=== PATIENT | female | born 1940 | race Hispanic/Latino ===

== ENCOUNTER 2017-03-02 19:08 | Emergency (ER) | payer MEDICARE ==
[~2017-03-02 19:08] MED LIST: AMLO10TA2 PO; LISI-613 PO; METO-391 PO; SIMV40TA59 PO; insu
[2017-03-02] MEDS ORDERED: ACETAMINOPHEN EXTRA STRENGTH 500 MG TABLET ONE (19:49)
[2017-03-02 20:36] LABS: CREATININE 1.9 mg/dL (0.5-1.5); POTASSIUM 4.9 mmol/L (3.5-5.1)
[2017-03-02 20:39] LABS: BASOPHILS % (AUTO) 0.3 % (0.0-5.0); EOSINOPHILS % (AUTO) 2.1 % (0.0-8.0); HEMATOCRIT 30.2 % (36-48); LYMPHOCYTES % (AUTO) 22.3 % (21.0-51.0); MEAN CORPUSCULAR HEMOGLOBIN 27.5 pg (27.0-33.0); MEAN CORPUSCULAR HGB CONC 33.7 g/dL (32.0-36.0); MEAN CORPUSCULAR VOLUME 81.6 fL (79-99); MONOCYTES % (AUTO) 6.1 % (3.0-13.0); NEUTROPHILS % (AUTO) 69.2 % (40.0-77.0); PLATELET COUNT (AUTO) 327 K/uL (130-400); RED CELL DISTRIBUTION WIDTH 16.2 % (11.0-15.5); WHITE BLOOD COUNT (AUTO) 9.1 K/uL (4.8-10.8)
[2017-03-02 20:50] LABS: ALBUMIN 2.3 g/dL (3.5-5.0); BILIRUBIN,TOTAL 0.1 mg/dL (0.2-1.0); CREATINE KINASE MB 1.7 ng/mL (0.5-3.6); TOTAL PROTEIN, SERUM 6.2 g/dL (6.0-8.3)
== END 2017-03-02 22:41 | disposition home or self-care (01) ==
LOC: EDH 19:08
DX: S20.212A Contusion of left front wall of thorax, initial encounter (principal); I10 Essential (primary) hypertension; E11.9 Type 2 diabetes mellitus without complications; Z79.4 Long term (current) use of insulin; W18.39XA Other fall on same level, initial encounter; Y93.89 Activity, other specified; Y92.89 Other specified places as the place of occurrence of the external cause; Y99.8 Other external cause status
CPT/HCPCS: 36415; 71046; 71100; 80053; 82550; 82553; 82948; 83690; 84484; 85025; 93005

== ENCOUNTER 2017-05-18 14:15 | Emergency (ER) | payer MEDICARE ==
[2017-05-18] MEDS ORDERED: ONDANSETRON HCL MDV 20ML 2 MG/ML VIAL ONE (14:52)
[2017-05-18] MEDS ORDERED: SODIUM CHLORIDE 0.9% 500ML 500 ML IV ONE (14:53)
[2017-05-18 14:56] LABS: BASOPHILS % (AUTO) 0.1 % (0.0-5.0); EOSINOPHILS % (AUTO) 0.3 % (0.0-8.0); HEMATOCRIT 28.2 % (36-48); MEAN CORPUSCULAR HEMOGLOBIN 28.4 pg (27.0-33.0); MEAN CORPUSCULAR HGB CONC 34.4 g/dL (32.0-36.0); MEAN CORPUSCULAR VOLUME 82.6 fL (79-99); MONOCYTES % (AUTO) 2.7 % (3.0-13.0); NEUTROPHILS % (AUTO) 90.9 % (40.0-77.0); PLATELET COUNT (AUTO) 272 K/uL (130-400); RED BLOOD CELL COUNT(AUTO) 3.42 MIL/uL (4.00-5.50); RED CELL DISTRIBUTION WIDTH 15.4 % (11.0-15.5); WHITE BLOOD COUNT (AUTO) 8.4 K/uL (4.8-10.8)
[2017-05-18 14:58] LABS: APPEARANCE,URINE Cloudy (CLEAR); BILIRUBIN,URINE Negative (NEGATIVE); COLOR,URINE Yellow (YELLOW); GLUCOSE, URINE (UA) 500 mg/dL (NEGATIVE); KETONES,URINE Negative (NEGATIVE); LEUKOCYTE ESTERASE ,URINE Trace (NEGATIVE); NITRATE,URINE Negative (NEGATIVE); OCCULT BLOOD,URINE Small (NEGATIVE); PH,URINE 5.5 (5.0-8.0); PROTEIN,URINE >=1000 (NEGATIVE); UROBILINOGEN,URINE 0.2 mg/dL (0.2-1.0)
[2017-05-18 15:05] LABS: CREATININE 2.1 mg/dL (0.5-1.5)
[2017-05-18 15:06] LABS: BACTERIA,URINE Many /HPF (None Seen)
[2017-05-18 15:07] LABS: RBC,URINE 0-1 /HPF (0-1)
[2017-05-18] MEDS ORDERED: MAG HYDROX/AL HYDROX/SIMETH ES 30 ML SUSP UDCUP ONE (15:08)
[2017-05-18] MEDS ORDERED: LIDOCAINE HCL 2% VISCOUS 15 ML UDCUP ONE (15:08)
[2017-05-18 15:18] LABS: BILIRUBIN,TOTAL 0.1 mg/dL (0.2-1.0); CREATINE KINASE MB 1.3 ng/mL (0.5-3.6); TOTAL PROTEIN, SERUM 6.1 g/dL (6.0-8.3)
== END 2017-05-18 16:47 | disposition home or self-care (01) ==
LOC: EDH 14:15
DX: K52.9 Noninfective gastroenteritis and colitis, unspecified (principal); E86.0 Dehydration; N39.0 Urinary tract infection, site not specified; N28.9 Disorder of kidney and ureter, unspecified; D64.9 Anemia, unspecified; E11.9 Type 2 diabetes mellitus without complications; I10 Essential (primary) hypertension; Z79.4 Long term (current) use of insulin
CPT/HCPCS: 36415; 71045; 80053; 81001; 82550; 82553; 83690; 84484; 85025; 93005; 96361; 96374; 99285; J7040

== ENCOUNTER → 2018-01-03 | Outpatient (CLI) | payer MEDICARE ==
[~2018-01-03] MED LIST changes: -AMLO10TA2 PO; +AMLO10TA6 PO; +ASPI-1181 PO; +CHLO25TA3 PO; +CLON0.1T PO; +DOCU-282 PO; +FERR325T22 PO; +HUM10VIA6 SQ; +HYDR100T27 PO; -LISI-613 PO; +LORA0.5T2 PO; +ONDA4TAB10 PO; +PANT40TA25 PO; +SERT25TA5 PO; +TRAM50TA4 PO; -insu
== END | disposition home or self-care (01) ==
LOC: SHCH 13:46
PROVIDERS: ATTEND Internal Medicine Cardiovascular Disease
DX: I87.2 Venous insufficiency (chronic) (peripheral) (principal); R09.89 Other specified symptoms and signs involving the circulatory and respiratory systems
CPT/HCPCS: 93880; 93970

== ENCOUNTER 2018-08-01 08:52 | Emergency (ER) | payer MEDICARE ==
[~2018-08-01 08:52] MED LIST changes: -AMLO10TA6 PO; +AMLO10TA7 PO; -ASPI-1181 PO; +BISA5TAB12 PO; -CHLO25TA3 PO; -CLON0.1T PO; +CLON0.2T PO; -DOCU-282 PO; -FERR325T22 PO; +FOLI0.8T7 PO; +FURO40TA5 PO; -HUM10VIA6 SQ; +INSU100I35 SQ; -LORA0.5T2 PO; +MEGE40L PO; -METO-391 PO; +METO-409 PO; +METO2.5T2 PO; +MINO2.5T3 PO; -ONDA4TAB10 PO; -SERT25TA5 PO; -SIMV40TA59 PO; -TRAM50TA4 PO
[2018-08-01 10:01] LABS: BASOPHILS % (AUTO) 0.5 % (0.0-5.0); EOSINOPHILS % (AUTO) 4.1 % (0.0-8.0); HEMATOCRIT 31.1 % (36-48); LYMPHOCYTES % (AUTO) 16.9 % (21.0-51.0); MEAN CORPUSCULAR HEMOGLOBIN 28.1 pg (27.0-33.0); MEAN CORPUSCULAR HGB CONC 33.1 g/dL (32.0-36.0); MEAN CORPUSCULAR VOLUME 85.1 fL (79-99); MONOCYTES % (AUTO) 6.9 % (3.0-13.0); NEUTROPHILS % (AUTO) 71.6 % (40.0-77.0); PLATELET COUNT (AUTO) 185 K/uL (130-400); RED BLOOD CELL COUNT(AUTO) 3.65 MIL/uL (4.00-5.50); RED CELL DISTRIBUTION WIDTH 16.5 % (11.0-15.5); WHITE BLOOD COUNT (AUTO) 6.2 K/uL (4.8-10.8)
[2018-08-01 10:19] LABS: CREATININE 4.3 mg/dL (0.5-1.5); POTASSIUM 4.1 mmol/L (3.5-5.1)
== END 2018-08-01 12:01 | disposition home or self-care (01) ==
LOC: EDH 08:52
DX: M96.841 Postprocedural hematoma of a musculoskeletal structure following other procedure (principal); E11.9 Type 2 diabetes mellitus without complications; I10 Essential (primary) hypertension; E78.5 Hyperlipidemia, unspecified; F32.9 Major depressive disorder, single episode, unspecified; Z79.4 Long term (current) use of insulin; Z90.49 Acquired absence of other specified parts of digestive tract; Z98.890 Other specified postprocedural states; Z90.89 Acquired absence of other organs
CPT/HCPCS: 36415; 80048; 85025; 93971

== ENCOUNTER 2018-09-30 06:19 | Day surgery (SDC) | payer MEDICARE ==
[2018-09-27 14:35] VITALS: BP 136/67
[2018-09-27 15:01] LABS: BASOPHILS % (AUTO) 0.6 % (0.0-5.0); EOSINOPHILS % (AUTO) 3.1 % (0.0-8.0); LYMPHOCYTES % (AUTO) 21.2 % (21.0-51.0); MEAN CORPUSCULAR HEMOGLOBIN 29.7 pg (27.0-33.0); MEAN CORPUSCULAR HGB CONC 32.8 g/dL (32.0-36.0); MEAN CORPUSCULAR VOLUME 90.5 fL (79-99); MONOCYTES % (AUTO) 9.5 % (3.0-13.0); NEUTROPHILS % (AUTO) 65.6 % (40.0-77.0); PLATELET COUNT (AUTO) 253 K/uL (130-400); RED BLOOD CELL COUNT(AUTO) 3.43 MIL/uL (4.00-5.50); WHITE BLOOD COUNT (AUTO) 5.7 K/uL (4.8-10.8)
[2018-09-27 15:29] LABS: CREATININE 3.9 mg/dL (0.5-1.5); POTASSIUM 3.2 mmol/L (3.5-5.1)
[2018-09-27 15:40] LABS: INR 0.93 (0.85-1.15); PROTHROMBIN TIME 9.8 SEC (9.6-11.6)
[~2018-09-30] VITALS: Ht 147.3 cm; Wt 47.0 kg
[2018-09-30 06:50] VITALS: BP 156/71
[2018-09-30] MEDS ORDERED: SODIUM CHLORIDE 0.9% 1000ML 1,000 ML IV ONE (07:20)
--- NOTE | 2018-09-30 07:49 | NUR ---
DR. Orville RUIZ NOTIFIED OF ABNORMAL K+ LEVEL 2.9. NEW ORDERS RECEIVED, OK TO PROCEED WITH FISTULOGRAM.
[2018-09-30] MEDS ORDERED: HEPARIN SODIUM 1000UNIT/ML 10ML VIAL ONE (08:57)
[2018-09-30] MEDS ORDERED: LIDOCAINE HCL 1% MDV 50ML VIAL ONE (08:58)
[2018-09-30] MEDS ORDERED: IODIXANOL 320 MG/ML 100 ML VIAL ONE (08:58)
[2018-09-30] MEDS ORDERED: POTASSIUM CHLORIDE 20 MEQ ERTAB PO SCH (09:00)
[2018-09-30 10:10] VITALS: BP 138/59
[2018-09-30 10:25] VITALS: BP 133/56
== END 2018-09-30 10:50 | disposition home or self-care (01) ==
LOC: DAH 06:19
PROVIDERS: ATTEND Thoracic Surgery (Cardiothoracic Vascular Surgery)
DX: T82.898A Other specified complication of vascular prosthetic devices, implants and grafts, initial encounter (principal); Y83.8 Other surgical procedures as the cause of abnormal reaction of the patient, or of later complication, without mention of misadventure at the time of the procedure; I12.0 Hypertensive chronic kidney disease with stage 5 chronic kidney disease or end stage renal disease; E11.22 Type 2 diabetes mellitus with diabetic chronic kidney disease; N18.6 End stage renal disease; E78.00 Pure hypercholesterolemia, unspecified; Z79.899 Other long term (current) drug therapy; Z90.49 Acquired absence of other specified parts of digestive tract; Z96.653 Presence of artificial knee joint, bilateral; Z98.890 Other specified postprocedural states; Z87.891 Personal history of nicotine dependence; Z82.49 Family history of ischemic heart disease and other diseases of the circulatory system; Z83.3 Family history of diabetes mellitus
CPT/HCPCS: 36415 ×2; 36901; 80048; 82948; 84132; 85025; 85610; 85730; A4606; C1769; C1894 ×2; J1644; J3490; J7030; Q9967

== ENCOUNTER 2019-04-17 07:55 | Emergency (ER) | payer MEDICARE ==
[2019-04-17] MEDS ORDERED: ACETAMINOPHEN 325 MG TAB ONE (08:32)
[2019-04-17] MEDS ORDERED: IPRATROPIUM/ALBUTEROL SULFATE 3 ML SOLUTION IH ONE (08:36)
== END 2019-04-17 10:07 | disposition home or self-care (01) ==
LOC: EDH 07:55
DX: J11.1 Influenza due to unidentified influenza virus with other respiratory manifestations (principal); E11.22 Type 2 diabetes mellitus with diabetic chronic kidney disease; I12.0 Hypertensive chronic kidney disease with stage 5 chronic kidney disease or end stage renal disease; N18.6 End stage renal disease; E78.5 Hyperlipidemia, unspecified; F32.9 Major depressive disorder, single episode, unspecified; Z90.49 Acquired absence of other specified parts of digestive tract
CPT/HCPCS: 87804; 94640

== ENCOUNTER 2023-02-09 17:57 | Emergency (ER) | payer MEDICARE ==
[~2023-02-09 17:57] MED LIST changes: +AMLO-258 PO; -AMLO10TA7 PO; +APIX2.5T PO; +BISA-151 PO; -BISA5TAB12 PO; +FOLI0.8T2 PO; -PANT40TA25 PO; +PANT40TA54 PO; +SUCR500T PO
[2023-02-09] MEDS ORDERED: MORPHINE 2 MG SYG IVP ONE (20:00)
[2023-02-09 20:13] LABS: BASOPHILS # (AUTO) 0.02 K/uL (0.00-0.20); BASOPHILS % (AUTO) 0.2 % (0.0-5.0); EOSINOPHILS # (AUTO) 0.12 K/uL (0.00-0.70); EOSINOPHILS % (AUTO) 1.2 % (0.0-8.0); HEMATOCRIT 32.7 % (36-48); LYMPHOCYTES # (AUTO) 1.6 K/uL (1.0-4.8); LYMPHOCYTES % (AUTO) 15.6 % (21.0-51.0); MEAN CORPUSCULAR HEMOGLOBIN 32.1 pg (27.0-33.0); MEAN CORPUSCULAR HGB CONC 32.4 g/dL (32.0-36.0); MEAN CORPUSCULAR VOLUME 99.1 fL (79-99); MONOCYTES # (AUTO) 0.7 K/uL (0.1-1.0); MONOCYTES % (AUTO) 6.4 % (3.0-13.0); NEUTROPHILS # (AUTO) 7.8 K/uL (1.8-7.7); NEUTROPHILS % (AUTO) 75.6 % (40.0-77.0); NUCLEATED RED BLOOD CELLS 0.2 % (0.0-0.19); PLATELET COUNT (AUTO) 185 K/uL (130-400); RED CELL DISTRIBUTION WIDTH 16.1 % (11.0-15.5); WHITE BLOOD COUNT (AUTO) 10.4 K/uL (4.8-10.8)
[2023-02-09 20:23] LABS: CREATININE 7.1 mg/dL (0.5-1.5); POTASSIUM 3.6 mmol/L (3.5-5.1)
[2023-02-09 20:28] LABS: ALBUMIN 3.5 g/dL (3.5-5.0); BILIRUBIN,TOTAL 0.3 mg/dL (0.2-1.0); TOTAL PROTEIN, SERUM 7.2 g/dL (6.0-8.3)
[2023-02-09] MEDS ORDERED: GABA300C PO (22:00)
[2023-02-09] MEDS ORDERED: IBUP-1493 PO (22:00)
[2023-02-09] MEDS ORDERED: CYCL-309 PO (22:00)
[2023-02-09 22:11] VITALS: BP 131/56; PULSE 64; RESP 17; O2SAT 97
== END 2023-02-09 22:20 | disposition home or self-care (01) ==
LOC: EDH 17:57
DX: M54.50 Low back pain, unspecified (principal); I12.0 Hypertensive chronic kidney disease with stage 5 chronic kidney disease or end stage renal disease; E11.22 Type 2 diabetes mellitus with diabetic chronic kidney disease; N18.6 End stage renal disease; Z99.2 Dependence on renal dialysis; Z79.4 Long term (current) use of insulin; Z79.899 Other long term (current) drug therapy
CPT/HCPCS: 99285; 96374; 72131; 80053; 85025; 36415; J2270

== ENCOUNTER 2023-05-27 12:36 | Emergency (ER) | payer MEDICARE, MEDICAID ==
[~2023-05-27] VITALS: Ht 147.3 cm; Wt 59.0 kg
[~2023-05-27 12:36] MED LIST changes: +CYCL-309 PO; +GABA300C PO; +IBUP-1493 PO; +MEGE400O39 PO; -MEGE40L PO
[2023-05-27 13:56] LABS: BASOPHILS # (AUTO) 0.03 K/uL (0.00-0.20); BASOPHILS % (AUTO) 0.4 % (0.0-5.0); EOSINOPHILS # (AUTO) 0.15 K/uL (0.00-0.70); EOSINOPHILS % (AUTO) 1.8 % (0.0-8.0); HEMATOCRIT 32.5 % (36-48); LYMPHOCYTES # (AUTO) 1.9 K/uL (1.0-4.8); LYMPHOCYTES % (AUTO) 22.9 % (21.0-51.0); MEAN CORPUSCULAR HEMOGLOBIN 29.8 pg (27.0-33.0); MEAN CORPUSCULAR HGB CONC 33.2 g/dL (32.0-36.0); MEAN CORPUSCULAR VOLUME 89.8 fL (79-99); MONOCYTES # (AUTO) 0.6 K/uL (0.1-1.0); MONOCYTES % (AUTO) 6.7 % (3.0-13.0); NEUTROPHILS # (AUTO) 5.6 K/uL (1.8-7.7); NUCLEATED RED BLOOD CELLS 0.2 % (0.0-0.19); PLATELET COUNT (AUTO) 201 K/uL (130-400); RED BLOOD CELL COUNT(AUTO) 3.62 MIL/uL (4.00-5.50); RED CELL DISTRIBUTION WIDTH 16.5 % (11.0-15.5); WHITE BLOOD COUNT (AUTO) 8.4 K/uL (4.8-10.8)
[2023-05-27 14:07] LABS: POTASSIUM 4.5 mmol/L (3.5-5.1)
[2023-05-27] MEDS: TRAMADOL HCL 50 MG TABLET PO ONE (14:11)
[2023-05-27 14:19] LABS: CREATININE 8.5 mg/dL (0.5-1.0)
[2023-05-27 15:35] VITALS: BP 146/62; PULSE 70; RESP 16; O2SAT 100
== END 2023-05-27 15:45 | disposition home or self-care (01) ==
LOC: EDH 12:36
DX: S16.1XXA Strain of muscle, fascia and tendon at neck level, initial encounter (principal); I12.0 Hypertensive chronic kidney disease with stage 5 chronic kidney disease or end stage renal disease; E11.22 Type 2 diabetes mellitus with diabetic chronic kidney disease; N18.6 End stage renal disease; Z99.2 Dependence on renal dialysis; E11.65 Type 2 diabetes mellitus with hyperglycemia; X58.XXXA Exposure to other specified factors, initial encounter; Y93.89 Activity, other specified; Y92.89 Other specified places as the place of occurrence of the external cause; Y99.8 Other external cause status
CPT/HCPCS: 36415; 72125; 80048; 84484; 85025; 93005

== ENCOUNTER 2024-04-10 08:43 | Emergency (ER) | payer MEDICARE ==
[~2024-04-10] VITALS: Ht 152.4 cm; Wt 54.9 kg
[~2024-04-10 08:43] MED LIST changes: +HYDR100T15 PO; -HYDR100T27 PO
[2024-04-10 09:31] LABS: BASOPHILS # (AUTO) 0.06 K/uL (0.00-0.20); BASOPHILS % (AUTO) 0.7 % (0.0-5.0); EOSINOPHILS # (AUTO) 0.17 K/uL (0.00-0.70); EOSINOPHILS % (AUTO) 1.9 % (0.0-8.0); HEMATOCRIT 36.1 % (36-48); IMMATURE GRANULOCYTE ABSOLUTE 0.03 K/uL (0-1); LYMPHOCYTES # (AUTO) 1.7 K/uL (1.0-4.8); MEAN CORPUSCULAR HEMOGLOBIN 30.3 pg (27.0-33.0); MEAN CORPUSCULAR HGB CONC 31.9 g/dL (32.0-36.0); MONOCYTES # (AUTO) 0.5 K/uL (0.1-1.0); MONOCYTES % (AUTO) 5.8 % (3.0-13.0); NEUTROPHILS # (AUTO) 6.6 K/uL (1.8-7.7); NEUTROPHILS % (AUTO) 72.3 % (40.0-77.0); PLATELET COUNT (AUTO) 249 K/uL (130-400); RED CELL DISTRIBUTION WIDTH 16.3 % (11.0-15.5); WHITE BLOOD COUNT (AUTO) 9.1 K/uL (4.8-10.8)
[2024-04-10 09:45] LABS: CREATININE 5.1 mg/dL (0.5-1.0); POTASSIUM 3.9 mmol/L (3.5-5.1)
--- NOTE | 2024-04-10 09:49 | HMCIMG ---
Exam: NONCONTRAST CT BRAIN REASON: HUGHES. COMPARISON: 09/14/2017 TECHNIQUE: Images are obtained from vertex to the skull base. The exam was performed without IV contrast. FINDINGS: There are generous ventricles and sulci. There is decreased attenuation in the deep central white matter. These findings are consistent with atrophy. There are no acute appearing focal parenchymal lesions. There is no evidence of mass, intracranial hemorrhage or acute stroke. Posterior fossa and brainstem structures appear unremarkable. There are no abnormal fluid collections. Extra cranial soft tissues appear unremarkable as well. IMPRESSION: 1. Atrophy, mild, no acute finding. CT was performed with one or more following dose reduction techniques: automated exposure control, adjustment of the mA and kv according to patient's size, or use of a iterative reconstruction technique.
--- NOTE | 2024-04-10 10:01 | ERN ---
ED Note History of Present Illness Stated Complaint: HYPERTENSION Chief Complaint: Hypertension Time Seen by MD: 08:51 Dictation: 83-year-old female with a history of ESRD on dialysis MWF presents to the ED for evaluation of hypertension onset [employer]. Patient reports nausea, headache, but denies any other associated symptoms at this time. Patient reports she had a blood pressure reading of 200/94 at home she also mentioned to complete dialysis yesterday but continues with a high blood pressure. Allergies: Coded Allergies: No Known Drug Allergies (Verified Allergy, Unknown, 06/09/22) Uncoded Allergies: nka (Allergy, Unknown, unknown, 09/19/15) unknown Home Meds Active Scripts Ibuprofen (Motrin/Advil) 800 Mg Tab, 800 MG PO TID, #30 TAB Prov:GABYB FORTE MD 02/09/23 Gabapentin (Neurontin) 300 Mg Capsule, 300 MG PO TID, #60 CAP Prov:GABBY FORTE MD 02/09/23 Cyclobenzaprine HCl (Cyclobenzaprine HCl) 10 Mg Tablet, 10 MG PO TID, #60 TAB Prov:GABBY FORTE MD 02/09/23 Apixaban (Eliquis) 2.5 Mg Tablet, 2.5 MG PO BID for 14 Days, #28 TAB 0 Refills Prov[facility] 09/09/19 Reported Medications Amlodipine Besylate (Amlodipine Besylate) 10 Mg Tablet, 10 MG PO AM, TAB 09/07/19 Amlodipine Besylate (Amlodipine Besylate) 10 Mg Tablet, 10 MG PO BID, TAB 09/07/19 Pantoprazole Sodium (Pantoprazole Sodium) 40 Mg Tablet.dr, 40 MG PO AM, TAB 09/07/19 Folic Acid/Vitamin B Comp W-C (Nephro-Je Tablet) 0.8 Mg Tablet, 0.8 MG PO AM, TAB 09/07/19 Metoprolol Succinate (Metoprolol Succinate) 100 Mg Tab.er.24h, 100 MG PO BID, T AB 09/07/19 Sucroferric Oxyhydroxide (Velphoro) 500 Mg Tab.chew, 500 MG PO TIDMEALS, TAB.CHEW 09/07/19 Hydralazine HCl (Hydralazine HCl) 100 Mg Tablet, 100 MG PO TID, TAB 09/07/19 Megestrol Acetate (Megestrol Acetate Susp) 400 Mg/10 Ml Susp, 40 MG PO AM, ML 07/23/18 Insulin NPH Hum/Reg Insulin Hm (Novolin 70-30 Flexpen) 100 Unit/1 Ml Insuln.pen, 25 UNITS SQ BID, SYRINGE 07/23/18 Furosemide (Furosemide) 40 Mg Tablet, 40 MG PO BID, TAB 07/23/18 Pantoprazole Sodium (Pantoprazole Sodium) 40 Mg Tablet.dr, 40 MG PO DAILY, TAB 07/23/18 Bisacodyl (Bisacodyl) 5 Mg Tablet.dr, 5 MG PO TID for CONSTIPATION, TAB 07/23/18 Clonidine HCl (Clonidine HCl) 0.2 Mg Tablet, 0.2 MG PO BID, TAB 07/23/18 Minoxidil (Minoxidil) 2.5 Mg Tablet, 2.5 MG PO DAILY, TAB 07/23/18 Metoprolol Succinate (Metoprolol Succinate) 100 Mg Tab.er.24h, 100 MG PO BID, TAB 07/23/18 Folic Acid/Vitamin B Comp W-C (Dialyvite 800 Tablet) 0.8 Mg Tablet, 800 MG PO DAILY, TAB 07/23/18 Metolazone (Metolazone) 2.5 Mg Tablet, 2.5 MG PO BID, TAB 07/23/18 Amlodipine Besylate (Amlodipine Besylate) 10 Mg Tablet, 10 MG PO DAILY, TAB 07/23/18 Hydralazine HCl (Hydralazine HCl) 100 Mg Tablet, 100 MG PO TID, TAB 07/23/18 Past Medical History Past Medical History: Diabetes-Type II, High Cholesterol, Hypertension Additional Past Medical Hx: DIALYSIS MWF Surgical History: Cholecystectomy Surgical History Other: THYROIDECTOMY, LT KNEE SX Social History: Negative History: Not Applicable Review of System Dictation Constitutional: Positive for high blood pressure Negative for fever,chills, and weight loss Eyes: Negative for injury, pain,redness, and discharge ENT: Negative for injury,pain or swelling Cardiovascular: Negative for chest pain, palpitations, and edema Respiratory: Negative for shortness of breath, cough, and wheezing, Abdomen/GI: Positive for nausea, Negative for abdominal pain,vomiting, diarrhea, and constipation Back: Negative for injury and pain : Negative for injury, bleeding and discharge MS/Extremity: Negative for injury and deformity Skin: Negative for rash, and discoloration Neuro: Positive for headache negative for weakness, numbness, tingling, and seizure Psych: Negative for suicide ideation, homicidal ideation, and hallucinations Initial Vital Sign VS Vital Signs Date Time Temp Pulse Resp B/P (MAP) Pulse Ox O2 Delivery O2 Flow Rate FiO2 04/10/24 08:45 98.8 74 20 191/71 99 0 04/10/24 09:30 Room Air* 21 Physical Exam Dictation General: awake, alert, NAD Head/Face: Normocephalic, atraumatic Eyes: PERRL, EOMI, vision at baseline ENT: oral cavity clear, TMs clear, no signs of infection Neck: Trachea midline, supple, no nuchal rigidity Cardiovascular: RRR, normal S1/S2, No MRGs, no JVD Respiratory: CTAB, no respiratory distress, No rales or wheezes Abdomen: Soft, non-tender, non-distended, normal bowel sounds, no guarding or rebound. Skin: Warm, dry, normal turgor, no rash MS/Extremity: Pulses equal, no cyanosis, neurovascular intact, FROM Neuro: COAx4, GCS 15, strength 5/5, CN 2-12 intact, normal cerebellar exam, normal gait, Psych: Normal behavior, mood, and affect normal Results (Laboratory/Radiology) Laboratory/Radiology Laboratory Tests Test 04/10/24 09:19 White Blood Count 9.1 K/uL (4.8-10.8) Red Blood Count 3.80 MIL/uL (4.00-5.50) L Hemoglobin 11.5 g/dL (12.0-16.0) L Hematocrit 36.1 % (36-48) Mean Corpuscular Volume 95.0 fL (79-99) Mean Corpuscular Hemoglobin 30.3 pg (27.0-33.0) Mean Corpuscular Hemoglobin Concent 31.9 g/dL (32.0-36.0) L Red Cell Distribution Width 16.3 % (11.0-15.5) H Platelet Count 249 K/uL (130-400) Mean Platelet Volume 12.4 fL (7.5-10.5) H Immature Granulocyte % (Auto) 0.3 % (0-1) Neutrophils (%) (Auto) 72.3 % (40.0-77.0) Lymphocytes (%) (Auto) 19.0 % (21.0-51.0) L Monocytes (%) (Auto) 5.8 % (3.0-13.0) Eosinophils (%) (Auto) 1.9 % (0.0-8.0) Basophils (%) (Auto) 0.7 % (0.0-5.0) Neutrophils # (Auto) 6.6 K/uL (1.8-7.7) Lymphocytes # (Auto) 1.7 K/uL (1.0-4.8) Monocytes # (Auto) 0.5 K/uL (0.1-1.0) Eosinophils # (Auto) 0.17 K/uL (0.00-0.70) Basophils # (Auto) 0.06 K/uL (0.00-0.20) Absolute Immature Granulocyte (auto 0.03 K/uL (0-1) Nucleated Red Blood Cells 0.0 % (0.0-0.19) Sodium Level 139 mmol/L (136-145) Potassium Level 3.9 mmol/L (3.5-5.1) Chloride Level 99 mmol/L (101-111) L Carbon Dioxide Level 30 mmol/L (21-32) Blood Urea Nitrogen 31 mg/dL (7-18) H Creatinine 5.1 mg/dL (0.5-1.0) H Glomerular Filtration Rate Calc 8 mL/min (>90) Random Glucose 164 mg/dL (70-105) H Total Calcium 8.6 mg/dL (8.5-10.1) Troponin I High Sensitivity 19 ng/L (4-50) Labs Reviewed?: Yes EKG Comment: EKG 04/10/2024 time 9:28 a.m. ventricular rate 74, WI 129, QRS D 84, QT 439. Sinus rhythm. No STEMI CT Scan Comment: REASON: HUGHES ORDERING PHYSICIAN: MARLINE HENNING MD PROCEDURE: HEAD WO - CT HEAD/BRAIN W/O CONTRAST Exam: NONCONTRAST CT BRAIN REASON: HUGHES. COMPARISON: 09/14/2017 TECHNIQUE: Images are obtained from vertex to the skull base. The exam was performed without IV contrast. FINDINGS: There are generous ventricles and sulci. There is decreased attenuation in the deep central white matter. These findings are consistent with atrophy. There are no acute appearing focal parenchymal lesions. There is no evidence of mass, intracranial hemorrhage or acute stroke. Posterior fossa and brainstem structures appear unremarkable. There are no abnormal fluid collections. Extra cranial soft tissues appear unremarkable as well. IMPRESSION: 1. Atrophy, mild, no acute finding. CT was performed with one or more following dose reduction techniques: automated exposure control, adjustment of the mA and kv according to patient's size, or use of a iterative reconstruction technique. DICTATED BY: CHRISTIANO JUNIOR MD DATE: 04/10/24945 ED Course ED Course Orders Procedure Category Date Status Time Cbc With Differential LAB 04/10/24 Complete 08:52 Basic Metabolic Panel LAB 04/10/24 Complete 08:52 Troponin I High LAB 04/10/24 Complete Sensitivity 08:52 Ct Head/Brain W/O CT 04/10/24 Resulted Contrast 08:52 Hydralazine 20mg Inj PHA 04/10/24 Complete (Apresoline 20mg In 09:00 12 Lead Ekg Tracing- EKG 04/10/24 Complete Technical 08:52 Current Medications Medications (Trade) Dose Ordered Sig/Sumi Route PRN Reason Start Time Stop Time Status Last Admin Dose Admin Hydralazine HCl (APRESOLine 20MG INJ) 10 mg ONCE ONCE IV 04/10/24 09:00 04/10/24 09:01 DC 04/10/24 10:09 Vital Signs Date Time Temp Pulse Resp B/P (MAP) Pulse Ox O2 Delivery O2 Flow Rate FiO2 04/10/24 10:40 97.9 76 18 168/64 99 Room Air* 0 21 04/10/24 10:10 98.2 71 18 178/64 99 Room Air* 0 21 04/10/24 09:30 98.6 76 18 210/70 99 Room Air* 0 21 04/10/24 08:45 98.8 74 20 191/71 99 0 Medical Decision Making MDM MDM: Differential diagnosis: HTN, ESRD on dialysis Patient's blood pressure has improved, negative workup. Patient is safe for discharge. Rationale: Tests considered and ordered secondary to shared decision making include: labs, ECG and radiology Risk of complication and/or morbidity or mortality of patient management: None Medications-Per medication reconciliation Need for hospitalization: Patient does meet criteria for hospitalization. Need for emergency major/minor surgery: No There are no social concerns with this patient. I independently interpreted the test that were performed, results were reviewed by me and considered findings on radiology if ordered. Medical management and examination interpretation discussions were had by me with other qualified healthcare professionals as indicated for the patient's care. DX & DISP Disposition: Discharge Departure Impression: Primary Impression: ESRD on hemodialysis Additional Impression: Accelerated hypertension Condition: Stable Referrals: MARKUS BEARD MD (PCP) MARLINE HENNING MD Apr 10, 2024 10:01
--- NOTE | 2024-04-10 10:01 | EKG ---
[facility] Test Date: 2024-04-10 Test Time: 09:28:18 Pat Name: SKINNY GUADARRAMA Department: [facility] Room: Gender: F Procurement Manager: [id number] : 1940 Requested By: MARLINE HENNING Order Number: [id number] Reading MD: Lio Arguello Measurements Intervals [place] Rate: 74 P: -6 NH: 129 QRS: 18 QRSD: 84 T: 43 QT: 439 QTc: 488 Interpretive Statements Sinus rhythm Compared to ECG 05/27/2023 13:48:49 Myocardial infarct finding no longer present Electronically Signed On 04-10-2024 19:17:15 [employer] by Lio Arguello Please click the below link to view image of tracing.
[2024-04-10] MEDS: hydrALAZine 20MG/ML VIAL IV ONE (10:09)
[2024-04-10 10:40] VITALS: BP 168/64; PULSE 76; RESP 18; TEMP 97.8; O2SAT 99
--- NOTE | 2024-04-10 11:21 | NUR ---
PT STABLE VITALS WNL NO C/O PAIN PT AAOX4, PT WILL MAKE APPT TO SEE HER PCP IN 2-3 DAYS. PT TAKEN OUT IN W/C DRIVEN HOME BY SON.
== END 2024-04-10 11:23 | disposition home or self-care (01) ==
LOC: EDH 08:43
DX: I12.0 Hypertensive chronic kidney disease with stage 5 chronic kidney disease or end stage renal disease (principal); E11.22 Type 2 diabetes mellitus with diabetic chronic kidney disease; N18.6 End stage renal disease; E78.00 Pure hypercholesterolemia, unspecified; I21.9 Acute myocardial infarction, unspecified; Z79.01 Long term (current) use of anticoagulants; Z79.1 Long term (current) use of non-steroidal anti-inflammatories (NSAID); Z79.4 Long term (current) use of insulin; Z79.899 Other long term (current) drug therapy; Z90.49 Acquired absence of other specified parts of digestive tract; Z90.89 Acquired absence of other organs; Z99.2 Dependence on renal dialysis
CPT/HCPCS: 99285; 96374; 70450; 84484; 80048; 85025; 36415; 93005; J0360

== ENCOUNTER → 2024-06-17 | Outpatient (CLI) | payer MEDICARE | END | disposition home or self-care (01) | LOC: SHCH 11:08 | PROVIDERS: ATTEND Internal Medicine Cardiovascular Disease | DX: I08.8 Other rheumatic multiple valve diseases (principal); I11.9 Hypertensive heart disease without heart failure; R01.1 Cardiac murmur, unspecified | CPT/HCPCS: 93306 ==